=== PATIENT | female | born 1965 | race Caucasian/White ===

== ENCOUNTER 2019-07-25 16:06 | Inpatient (IN) | payer OTHER ==
[~2019-07-25] VITALS: Ht 160 cm; Wt 104.3 kg
[2019-07-25 17:23] LABS: BASOPHILS % 0.3 % (0.0-2.0); EOSINOPHILS % 2.6 % (0.0-5.0); HEMATOCRIT. 40.8 % (36.0-48.0); HEMOGLOBIN. 13.3 g/dL (12.0-16.0); LYMPHOCYTES % 26.3 % (20.0-50.0); MEAN CORPUSCULAR VOLUME 83.3 fL (81.0-99.0); MEAN PLATELET VOLUME 9.8 fl (7.4-10.4); MONOCYTES % 5.1 % (2.0-8.0); NEUTROPHILS % 65.7 % (40.0-76.0); PLATELET 237 x1000/uL (130-400); RED CELL DISTRIBUTION WIDTH 14.7 % (11.6-14.6)
[2019-07-25 17:25] LABS: CHLORIDE 105 mEq/L (98-107)
[2019-07-25 17:43] LABS: CLARITY URINE CLOUDY (CLEAR); COLOR URINE YELLOW (YELLOW); KETONES URINE TRACE (NEGATIVE); LEUKOCYTE ESTERASE URINE NEGATIVE (NEGATIVE); NITRITE URINE NEGATIVE (NEGATIVE); OCCULT BLOOD URINE NEGATIVE (NEGATIVE); PROTEIN URINE NEGATIVE (NEGATIVE); SPECIFIC GRAVITY URINE 1.025 (1.005-1.030); UROBILINOGEN URINE 0.2 E.U./dL (0.2-1.0)
[2019-07-25 17:59] LABS: *AMPHETAMINES SCREEN URINE NEGATIVE (NEGATIVE); *BARBITURATES SCREEN URINE NEGATIVE (NEGATIVE); *BENZODIAZEPINES SCREEN URINE NEGATIVE (NEGATIVE); *COCAINE SCREEN URINE NEGATIVE (NEGATIVE); CANNABINOID URINE SCREEN NEGATIVE (NEGATIVE); METHADONE URINE SCREEN NEGATIVE (NEGATIVE); OPIATES URINE SCREEN NEGATIVE (NEGATIVE)
[2019-07-25 18:00] LABS: PHENCYCLIDINE URINE SCREEN NEGATIVE (NEGATIVE)
[2019-07-25] MEDS ORDERED: SODIUM CHLORIDE 0.9% 1,000 ML IV ONE (19:15)
[2019-07-25] MEDS ORDERED: IBUPROFEN 200MG TABLET PO ONE (20:00)
[2019-07-25] MEDS: MAGNESIUM OXIDE 400MG TABLET PO SCH (22:06)
[2019-07-25 22:45] VITALS: BP 124/62
[2019-07-25] MEDS ORDERED: MORPHINE SULFATE 2 MG/ML CPJ (NOT FOR IM USE) IV PRN (23:45)
[2019-07-25] MEDS ORDERED: IPRATROPIUM/ALBUTEROL 0.5-3(2.5)MG/3ML NEB INH PRN (23:45)
[2019-07-25] MEDS ORDERED: CLONIDINE 0.1MG TABLET PO PRN (23:45)
[2019-07-25] MEDS ORDERED: ONDANSETRON HCL 4MG/2ML INJ IV PRN (23:45)
[2019-07-25] MEDS ORDERED: LORAZEPAM 2MG/ML CPJ IV PRN (23:45)
[2019-07-25] MEDS ORDERED: HYDROCODONE/ACETAMINOPHEN 5/325MG TABLET PO PRN (23:45)
[2019-07-25] MEDS ORDERED: CEFTRIAXONE 1 G PREMIX 50 ML IV SCH (23:45)
[2019-07-26] MEDS ORDERED: DEXTROSE 50% WATER 50ML SYRINGE IV PRN ×3 (00:15→11:30)
[2019-07-26] MEDS ORDERED: SODIUM CHLORIDE 0.9% 1,000 ML IV SCH (01:00)
[2019-07-26] MEDS ORDERED: CEFTRIAXONE 1 G PREMIX 50 ML IV SCH (02:00)
[2019-07-26 04:00] VITALS: BP 134/64
[2019-07-26] MEDS: BLOOD SUGAR DIAGNOSTIC STRIP TEST SCH ×4 (06:16→21:17)
[2019-07-26] MEDS: INSULIN LISPRO 100 UNITS/ML SUBCUT SCH ×4 (07:40→21:28)
[2019-07-26 08:00] VITALS: BP 128/68
[2019-07-26] MEDS: THIAMINE HCL 100MG TABLET PO SCH (09:16)
[2019-07-26] MEDS: ASPIRIN 81MG EC TABLET PO SCH (09:16)
[2019-07-26] MEDS: ENOXAPARIN 30MG/0.3ML SYR SUBCUT SCH ×2 (09:18→21:27)
[2019-07-26 11:29] LABS: CREATINE KINASE 48 IU/L (26-192)
[2019-07-26 11:30] LABS: CREATINE KINASE MB FRACTION < 1.0 ng/mL (0.5-3.6)
[2019-07-26] MEDS ORDERED: DEXT 5%/0.45% NACL 1000ML 1,000 ML IV SCH (11:30)
[2019-07-26 12:00] VITALS: BP 125/66
[2019-07-26] MEDS: METRONIDAZOLE 500 MG PREMIX 100 ML IV SCH ×2 (14:24→21:27)
[2019-07-26] MEDS: SODIUM CHLORIDE 0.9% 1,000 ML IV SCH (14:45)
[2019-07-26 16:00] VITALS: BP 126/65
[2019-07-26 16:17] LABS: CREATINE KINASE 44 IU/L (26-192)
[2019-07-26 16:18] LABS: CREATINE KINASE MB FRACTION < 1.0 ng/mL (0.5-3.6)
[2019-07-26 20:00] VITALS: BP 116/57
[2019-07-27] VITALS: BP 128/63
[2019-07-27 04:00] VITALS: BP 116/58
[2019-07-27] MEDS: SODIUM CHLORIDE 0.9% 1,000 ML IV SCH (04:32)
[2019-07-27] MEDS: METRONIDAZOLE 500 MG PREMIX 100 ML IV SCH ×2 (04:32→12:22)
[2019-07-27] MEDS: BLOOD SUGAR DIAGNOSTIC STRIP TEST SCH ×3 (06:03→13:08)
[2019-07-27] MEDS: INSULIN LISPRO 100 UNITS/ML SUBCUT SCH ×3 (06:11→13:08)
[2019-07-27 07:46] LABS: BASOPHILS % 0.6 % (0.0-2.0); EOSINOPHILS % 3.7 % (0.0-5.0); HEMATOCRIT. 39.7 % (36.0-48.0); LYMPHOCYTES % 33.5 % (20.0-50.0); MEAN CORPUSCULAR HEMOGLOBIN 27.4 pg (28.0-32.0); MEAN CORPUSCULAR VOLUME 83.8 fL (81.0-99.0); MEAN PLATELET VOLUME 9.9 fl (7.4-10.4); MONOCYTES % 4.6 % (2.0-8.0); NEUTROPHILS % 57.6 % (40.0-76.0); PLATELET 201 x1000/uL (130-400); RED BLOOD CELL COUNT 4.74 mill/uL (4.2-5.4); RED CELL DISTRIBUTION WIDTH 15.1 % (11.6-14.6)
[2019-07-27 07:58] LABS: CHLORIDE 107 mEq/L (98-107)
[2019-07-27 08:00] VITALS: BP 121/71
[2019-07-27] MEDS: ASPIRIN 81MG EC TABLET PO SCH (08:57)
[2019-07-27] MEDS: THIAMINE HCL 100MG TABLET PO SCH (08:57)
[2019-07-27] MEDS: ENOXAPARIN 30MG/0.3ML SYR SUBCUT SCH (08:57)
[2019-07-27 17:05] VITALS: BP 121/71
== END 2019-07-27 17:43 | disposition home or self-care (01) | DRG 206 ==
LOC: ER 16:06 → 8WST 21:37 → EDBEDREQTM 21:41 → EDBEDREQ 21:41 → ENRESERV 22:13
PROVIDERS: ADMIT Internal Medicine Nephrology; ATTEND Internal Medicine Nephrology
DX: M94.0 Chondrocostal junction syndrome [Tietze] (principal); E87.2 Acidosis; Z68.41 Body mass index [BMI] 40.0-44.9, adult; N76.0 Acute vaginitis; I10 Essential (primary) hypertension; E66.9 Obesity, unspecified; E11.21 Type 2 diabetes mellitus with diabetic nephropathy; Z71.89 Other specified counseling; Z90.49 Acquired absence of other specified parts of digestive tract; Z90.710 Acquired absence of both cervix and uterus; Z90.722 Acquired absence of ovaries, bilateral; Z79.899 Other long term (current) drug therapy
CPT/HCPCS: 36415; 71045; 76830; 76856; 80048; 80305; 81003; 82550; 82553; 82962; 83605; 83735; 83880; 84145; 84484; 93005; 93306; 99285; J0696; J1650; J1815; J3490; J7030

== ENCOUNTER 2019-09-20 18:53 | Emergency (ER) | payer OTHER ==
[~2019-09-20] VITALS: Ht 165.1 cm; Wt 110.0 kg
[2019-09-20] MEDS ORDERED: ONDANSETRON HCL 4MG/2ML INJ IV STA (20:43)
[2019-09-20] MEDS ORDERED: SODIUM CHLORIDE 0.9% 1,000 ML IV ONE (20:43)
[2019-09-20] MEDS ORDERED: MORPHINE SULFATE 4 MG/ML CPJ (NOT FOR IM USE) IV STA (20:43)
[2019-09-20] MEDS ORDERED: FAMOTIDINE 20MG/2ML VIAL IV STA (20:43)
[2019-09-20] MEDS ORDERED: MAGNESIUM/ALUMINUM HYDROXIDE/SIMETHICONE 30ML UDC PO ONE (20:45)
[2019-09-20] MEDS ORDERED: MORPHINE SULFATE 4 MG/ML CPJ (NOT FOR IM USE) IV ONE (21:45)
[2019-09-20] MEDS ORDERED: ONDANSETRON HCL 4MG/2ML INJ IV ONE (21:45)
[2019-09-20 21:55] LABS: CHLORIDE 105 mEq/L (98-107)
[2019-09-20 21:57] LABS: INR 0.9; PARTIAL THROMBOPLASTIN TIME 26.1 sec (23.4-31.0); PROTHROMBIN TIME 9.8 sec (9.6-11.0)
[2019-09-20 21:58] LABS: BASOPHILS % 0.2 % (0.0-2.0); EOSINOPHILS % 2.2 % (0.0-5.0); HEMATOCRIT. 40.2 % (36.0-48.0); HEMOGLOBIN. 13.3 g/dL (12.0-16.0); LYMPHOCYTES % 15.2 % (20.0-50.0); MEAN CORPUSCULAR HEMOGLOBIN 27.3 pg (28.0-32.0); MEAN CORPUSCULAR VOLUME 82.4 fL (81.0-99.0); MEAN PLATELET VOLUME 9.6 fl (7.4-10.4); MONOCYTES % 4.6 % (2.0-8.0); NEUTROPHILS % 77.8 % (40.0-76.0); PLATELET 234 x1000/uL (130-400); RED BLOOD CELL COUNT 4.88 mill/uL (4.2-5.4); RED CELL DISTRIBUTION WIDTH 15.5 % (11.6-14.6)
[2019-09-20 21:59] LABS: ETHANOL BLOOD < 10 mg/dL
[2019-09-21] MEDS ORDERED: ONDANSETRON HCL 4MG/2ML INJ IV ONE (00:15)
[2019-09-21] MEDS ORDERED: MORPHINE SULFATE 4 MG/ML CPJ (NOT FOR IM USE) IV ONE (00:15)
[2019-09-21 01:03] VITALS: BP 123/65
== END 2019-09-21 01:07 | disposition home or self-care (01) ==
LOC: ER 18:53 → CANBEDREQ 09-21 06:10
DX: R10.11 Right upper quadrant pain (principal); K29.70 Gastritis, unspecified, without bleeding; I10 Essential (primary) hypertension; E11.9 Type 2 diabetes mellitus without complications; F41.9 Anxiety disorder, unspecified; E78.00 Pure hypercholesterolemia, unspecified; Z90.710 Acquired absence of both cervix and uterus
CPT/HCPCS: 36415; 71045; 74176; 80053; 80320; 83690; 83880; 84484; 85025; 85610; 85730; 93005; 96361; 96374; 96375; 96376; 99284; J2270; J2405; J3490; J7030; Z7610; G0480

== ENCOUNTER 2020-07-28 15:34 | Emergency (ER) | payer OTHER ==
[~2020-07-28] VITALS: Ht 160 cm; Wt 109.0 kg
[2020-07-28 15:41] VITALS: BP 139/63
[2020-07-28 16:54] LABS: CLARITY URINE CLEAR (CLEAR); COLOR URINE YELLOW (YELLOW); KETONES URINE NEGATIVE (NEGATIVE); LEUKOCYTE ESTERASE URINE 1+ (NEGATIVE); NITRITE URINE NEGATIVE (NEGATIVE); OCCULT BLOOD URINE NEGATIVE (NEGATIVE); PROTEIN URINE TRACE (NEGATIVE); SPECIFIC GRAVITY URINE 1.025 (1.005-1.030); UROBILINOGEN URINE 0.2 E.U./dL (0.2-1.0)
== END 2020-07-28 17:35 | disposition home or self-care (01) ==
LOC: ER 15:47
DX: N39.0 Urinary tract infection, site not specified (principal); I10 Essential (primary) hypertension; E11.9 Type 2 diabetes mellitus without complications; F41.9 Anxiety disorder, unspecified; E78.00 Pure hypercholesterolemia, unspecified; Z90.710 Acquired absence of both cervix and uterus
CPT/HCPCS: 81003; 99283